=== PATIENT | female | born 1970 | race African-American/Black ===

== ENCOUNTER 2022-11-20 18:14 | Emergency (ER) | payer MEDICARE ==
[~2022-11-20] VITALS: Ht 167.6 cm; Wt 80.7 kg
[2022-11-20 19:06] LABS: BASOPHILS ABSOLUTE AUTO 0.04 K/mm3 (0.00-0.23); BASOPHILS PERCENT AUTO 1 % (0-2); EOSINOPHILS ABSOLUTE AUTO 0.08 K/mm3 (0.00-0.68); EOSINOPHILS PERCENT AUTO 1 % (0-6); Hematocrit 42.7 % (33.0-51.0); Hemoglobin 14.3 g/dL (11.5-16.0); IMMATURE GRAN ABSOLUTE AUTO 0.01 K/mm3 (0.00-0.10); IMMATURE GRAN PERCENT AUTO 0 % (0-1); LYMPHOCYTES ABSOLUTE AUTO 2.51 K/mm3 (0.84-5.20); LYMPHOCYTES PERCENT AUTO 29 % (21-46); MONOCYTES ABSOLUTE AUTO 0.58 K/mm3 (0.16-1.47); MONOCYTES PERCENT AUTO 7 % (4-13); Mean Corpuscular HGB 31.6 pg (26.0-34.0); Mean Corpuscular HGB Conc 33.5 g/dL (31.5-36.5); Mean Corpuscular Volume 95 fL (80-100); Mean Platelet Volume 10.5 fL (9.1-12.4); NEUTROPHILS ABSOLUTE AUTO 5.45 K/mm3 (1.96-9.15); NEUTROPHILS PERCENT AUTO 63 % (41-73); Platelet Count 639 K/mm3 (150-400); RDW Coefficient Variation 13.2 % (11.7-14.2); RDW Standard Deviation 46.4 fL (35.1-46.3); Red Blood Cell Count 4.52 M/mm3 (3.80-5.20); White Blood Cell Count 8.67 K/mm3 (4.00-11.30)
[2022-11-20 19:16] LABS: Albumin, Blood 3.9 g/dL (3.4-5.0); Albumin/Globulin Ratio 1.1 (0.8-1.8); Bilirubin, Total 0.5 mg/dL (0.1-1.0); Calcium, Blood 9.4 mg/dL (8.5-10.1); Creatinine, Blood 0.82 mg/dL (0.40-1.00); Globulin, Blood 3.4 g/dL (2.2-4.0); Potassium, Blood 3.9 mmol/L (3.5-5.5); Total Protein, Blood 7.3 g/dL (6.4-8.2)
[2022-11-20] MEDS ORDERED: GABAPENTIN600 MG PO (19:47)
[2022-11-20] MEDS ORDERED: Amphetamine Sal30 MG PO (19:48)
[2022-11-20] MEDS ORDERED: ZIPRASIDONE HCL80 MG PO (19:48)
[2022-11-20] MEDS ORDERED: MELO7.5 PO (19:48)
[2022-11-20] MEDS ORDERED: TEMA30 PO (19:48)
[2022-11-20] MEDS ORDERED: Methocarbamol500 MG PO (19:48)
[2022-11-20] MEDS ORDERED: LAMOTRIGINE100 M1 PO (19:49)
[2022-11-20] MEDS ORDERED: ASPI81CH PO (19:49)
[2022-11-20 21:34] VITALS: BP 101/78
[2022-11-20] MEDS ORDERED: PROM12.5S PR (22:30)
[2022-11-20] MEDS ORDERED: ONDA4ODT MM (22:30)
== END 2022-11-20 22:37 | disposition home or self-care (01) ==
LOC: ER 18:14
PROVIDERS: Student in an Organized Health Care Education/Training Program
DX: K22.6 Gastro-esophageal laceration-hemorrhage syndrome (principal); Z88.2 Allergy status to sulfonamides; Z79.899 Other long term (current) drug therapy; Z79.82 Long term (current) use of aspirin
CPT/HCPCS: 80053; 83690; 85025; 96361; 96374; 99284-25; J2405; J7030